=== PATIENT | male | born 1975 | race Caucasian/White ===

== ENCOUNTER 2020-10-03 12:35 | Emergency (ER) | payer SELFPAY ==
--- NOTE | 2020-10-03 15:45 | EDM.PDOC ---
ED HPI GENERAL MEDICAL PROBLEM - General Chief Complaint: General Stated Complaint: LEG SWELLING AND RED SPOTS /MOUTH INFECTION Time Seen by Provider: 10/03/20 13:32 Source of Information: Reports: Patient, RN Notes Reviewed - History of Present Illness INITIAL COMMENTS - FREE TEXT/NARRATIVE: 45 yr old male comes in with concern about dental "abcess" that he has been draining off and on, lower leg swelling, L worse than R and "low energy". No severe dental pain. No fever or chills. No injury to either leg. 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 Lower Leg Pain Score (Numeric/FACES): 10 - Related Data Allergies Allergy/AdvReac Type Severity Reaction Status Date / Time No Known Allergies Allergy Verified 10/03/20 15:48 Home Meds: Home Meds clindamycin HCL [Clindamycin HCl] 300 mg PO TID #20 capsule 10/03/20 [Rx] predniSONE [Prednisone] 50 mg PO DAILY #7 tablet 10/03/20 [Rx] Past Medical History Neurological History: Reports: Neuropathy, Peripheral - Past Surgical History Neurological Surgical History: Reports: Other (See Below) Other Neurological Surgeries/Procedures: pituitary tumor removal Social & Family History - Tobacco Use Tobacco Use Status *Q: Current Every Day Tobacco User Years of Tobacco use: 20 Packs/Tins Daily: 1 Second Hand Smoke Exposure: No - Recreational Drug Use Recreational Drug Use: No ED ROS GENERAL - Review of Systems Review Of Systems: See Below Constitutional: Denies: Fever, Chills, Diaphoresis HEENT: Reports: No Symptoms Respiratory: Denies: Shortness of Breath, Cough Cardiovascular: Denies: Chest Pain Endocrine: Reports: Fatigue GI/Abdominal: Denies: Nausea, Vomiting Musculoskeletal: Reports: Other (lower leg swelling) Skin: Reports: Rash (has had some areas of rash bilat lower legs chronically for yrs) ED EXAM, GENERAL - Physical Exam Exam: See Below General Appearance: Alert, No Apparent Distress Throat/Mouth: Other (very small area of swelling base of Lower incissor, no active drainage) Neck: Supple Respiratory/Chest: No Respiratory Distress, Lungs Clear, Normal Breath Sounds Cardiovascular: Regular Rate, Rhythm GI/Abdominal: Non-Tender Extremities: Pedal Edema (very mild swelling L lower ant leg). No: Leg Pain (calves nontender) Neurological: Alert, Oriented, No Motor/Sensory Deficits Skin Exam: Rash (a few scattered erythematous lesions bilat lower legs, nontender, skin otherwise clear) Course - Vital Signs Last Recorded V/S: Last Vital Signs Temp 97.5 F 10/03/20 12:49 Pulse 73 10/03/20 12:49 Resp 16 10/03/20 12:49 BP 135/99 H 10/03/20 12:49 Pulse Ox 97 10/03/20 12:49 - Orders/Labs/Meds Labs: Laboratory Tests 10/03/20 10/03/20 10/03/20 Range/Units 14:20 14:20 14:20 WBC 5.86 (4.23-9.07) K/mm3 RBC 4.60 L (4.63-6.08) M/mm3 Hgb 14.5 (13.7-17.5) gm/dl Hct 42.9 (40.1-51.0) % MCV 93.3 H (79.0-92.2) fl MCH 31.5 (25.7-32.2) pg MCHC 33.8 (32.2-35.5) g/dl RDW Std Deviation 44.0 H (35.1-43.9) fL Plt Count 273 (163-337) K/mm3 MPV 9.5 (9.4-12.3) fl Neutrophils % (Manual) 54 (40-60) % Band Neutrophils % 0 (0-10) % Lymphocytes % (Manual) 34 (20-40) % Atypical Lymphs % 0 % Monocytes % (Manual) 10 (2-10) % Eosinophils % (Manual) 2 (0.8-7.0) % Basophils % (Manual) 0 L (0.2-1.2) Platelet Estimate Adequate RBC Morph Comment Normal ESR 7 (0-15) mm/hr Sodium 143 (136-145) mEq/L Potassium 4.0 (3.5-5.1) mEq/L Chloride 107 (98-107) mEq/L Carbon Dioxide 25 (21-32) mEq/L Anion Gap 15.0 (5-15) BUN 14 (7-18) mg/dL Creatinine 0.8 (0.7-1.3) mg/dL Est Cr Clr Drug Dosing 130.92 mL/min Estimated GFR (MDRD) > 60 (>60) mL/min BUN/Creatinine Ratio 17.5 (14-18) Glucose 94 (70-99) mg/dL Calcium 8.6 (8.5-10.1) mg/dL Total Bilirubin 0.3 (0.2-1.0) mg/dL AST 24 (15-37) U/L ALT 32 (16-63) U/L Alkaline Phosphatase 85 (46-116) U/L C-Reactive Protein <0.2 (<1.0) mg/dL Total Protein 7.0 (6.4-8.2) g/dl Albumin 3.6 (3.4-5.0) g/dl Globulin 3.4 gm/dL Albumin/Globulin Ratio 1.1 (1-2) - Re-Assessments/Exams Free Text/Narrative Re-Assessment/Exam: 10/05/20 07:22 I did check labs including WBC, sed rate, CRP, chem. , all normal. Discharge instr. as documented. Departure - Departure Time of Disposition: 15:39 Disposition: Home, Self-Care 01 Condition: Fair Clinical Impression: Leg pain, left, Left leg swelling, Pain, dental - Discharge Information Prescriptions: clindamycin HCL [Clindamycin HCl] 300 mg PO TID #20 capsule predniSONE [Prednisone] 50 mg PO DAILY #7 tablet Referrals: PCP,Not In Area [Primary Care Provider] - Forms: ED Department Discharge Additional Instructions: Rest and elevate legs at least 30 minutes 3 times a day until swelling resolves. Prednisone 50 mg daily for 7 days. Clindamycin 300 mg 3 times daily for 1 week. Prescriptions have been sent to [facility] the [facility]. See provider at our medical clinic in 5 to 7 days, call [phone] for appointment. Sepsis Event Note (ED) - Evaluation Sepsis Screening Result: No Definite Risk
== END 2020-10-03 15:54 | disposition home or self-care (01) ==
LOC: JD.ED 12:35
DX: M79.662 Pain in left lower leg (principal); K08.89 Other specified disorders of teeth and supporting structures; R22.42 Localized swelling, mass and lump, left lower limb; G62.9 Polyneuropathy, unspecified; Z72.0 Tobacco use
CPT/HCPCS: 36415; 80053; 85007; 85027; 85652; 86140; 99283

== ENCOUNTER 2020-10-06 18:09 | Emergency (ER) | payer SELFPAY ==
[2020-10-06] MEDS ORDERED: Iopamidol 612 MG/ML 50 ML SDV IVPUSH ONE (19:04)
[2020-10-06] MEDS ORDERED: Iopamidol 612 MG/ML 100 ML Bottle IVPUSH ONE (19:04)
[2020-10-06] MEDS ORDERED: Sodium Chloride 0.9% 10 ML Syringe FLUSH SCH (19:15)
--- NOTE | 2020-10-06 19:36 | CT ---
CT chest Technique: Multiple axial sections were obtained from above the lung apices inferiorly through the lung bases. Intravenous contrast was utilized. Reconstructed coronal and sagittal images were obtained. Findings: Small portion of the visualized upper abdominal structures appear within normal limits. No pericardial thickening is seen. Thoracic aorta shows no aneurysm. No axillary adenopathy is appreciated. Mediastinum and hilar regions show no adenopathy. Lungs are clear. No acute parenchymal change is seen. No discrete foreign body is seen within the thoracic wall or within the lungs. Bone window settings were reviewed and show no acute osseous abnormality. Very slight degenerative change is noted within the spine. Impression: 1. Nothing acute is seen on CT study of the chest. Diagnostic code #2
--- NOTE | 2020-10-06 20:02 | CR ---
Left shoulder: Single AP view of the left shoulder was obtained. Comparison: No prior study. Acromioclavicular and glenohumeral joints are normal. Minimal deformity is noted within the sixth rib compatible with old healed fracture. No acute fracture or other acute abnormality is appreciated. Impression: 1. Minimal deformity compatible with old healed fracture within the left sixth rib. 2. Nothing acute is otherwise seen on AP left shoulder study. Diagnostic code #2
--- NOTE | 2020-10-06 20:02 | CR ---
Chest: Portable view of the chest was obtained. Comparison: No previous chest imaging. Heart size and mediastinum are normal. Lungs are clear with no acute parenchymal change. No acute osseous abnormality is appreciated. Impression: 1. Nothing acute is seen on portable chest x-ray. Diagnostic code #1
[2020-10-06] MEDS ORDERED: Diphtheria,Pertussis(Acell),Tetanus Vaccine 0.5 ML Syringe IM ONE (20:03)
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
== END 2020-10-06 20:45 | disposition home or self-care (01) ==
LOC: JD.ED 18:09
DX: S21.112A Laceration without foreign body of left front wall of thorax without penetration into thoracic cavity, initial encounter (principal); Z23 Encounter for immunization; G62.9 Polyneuropathy, unspecified; Z72.0 Tobacco use; W26.8XXA Contact with other sharp object(s), not elsewhere classified, initial encounter
CPT/HCPCS: 36415; 71045; 71260; 73020; 80053; 85025; 90471; 90715; 99284; Q9967; 99283

== ENCOUNTER 2022-06-16 19:35 | Emergency (ER) | payer SELFPAY ==
[2022-06-16] MEDS ORDERED: Sodium Chloride 0.9% 10 ML Syringe FLUSH PRN (20:23)
[2022-06-16] MEDS ORDERED: Sodium Chloride 0.9% 1,000 ML IV SCH (20:30)
[2022-06-16] MEDS ORDERED: Ondansetron 4 MG/2 ML SDV IVPUSH ONE (20:41)
[2022-06-16] MEDS ORDERED: Nicotine 21 MG/24 Hr Patch TRDERM ONE (21:33)
[2022-06-16 22:12] LABS: CORONAVIRUS COVID-19 NAA NEGATIVE (NEGATIVE)
[2022-06-16] MEDS ORDERED: LORazepam 2 MG/ML SDV IVPUSH ONE (22:21)
[2022-06-16] MEDS ORDERED: Ketorolac 30 MG/ML SDV IVPUSH ONE (22:21)
[2022-06-16] MEDS ORDERED: Dextrose 5%-Lactated Ringers 1,000 ML IV SCH (22:45)
[2022-06-17] MEDS ORDERED: Ondansetron 4 MG/2 ML SDV IVPUSH ONE (06:26)
[2022-06-17] MEDS ORDERED: LORazepam 2 MG/ML SDV IVPUSH ONE (06:27)
== END 2022-06-17 09:37 | disposition other institution (70) ==
LOC: JD.ED 19:35
DX: F10.120 Alcohol abuse with intoxication, uncomplicated (principal); Y90.2 Blood alcohol level of 40-59 mg/100 ml; Z20.822 Contact with and (suspected) exposure to COVID-19
CPT/HCPCS: 0240U; 36415; 80053; 80307; 83690; 85025; 96361; 96374; 96375; 96376; 99284; A9270; J1885; J2060; J2405; J3490; J7030; J7121